=== PATIENT | male | born 1955 | race Caucasian/White ===

== ENCOUNTER 2017-10-29 17:44 | Inpatient (IN) | payer OTHER ==
[~2017-10-29] VITALS: Ht 170.2 cm; Wt 79.4 kg
[2017-10-29] MEDS ORDERED: LEVETIRACETAM INJ 1,000 MG in D5W 5% 100 ML IV ONE (19:15)
[2017-10-29 19:22] LABS: Basophils # (auto) 0 uL; Basophils % (auto) 0.3 % (0.0-2.0); Eosinophils # (auto) 0.1 uL; Eosinophils % (auto) 0.7 % (0.0-7.0); Hematocrit 40.9 % (41.0-53.0); Hemoglobin 13.5 g/dL (13.5-17.5); Lymphocytes # (auto) 1.3 uL; Lymphocytes % (auto) 9.4 % (10.0-50.0); Mean Corpuscular Volume 90.9 fL (80.0-100.0); Monocytes # (auto) 0.8 uL; Neutrophils # (auto) 11.7 uL; Neutrophils % (auto) 83.6 % (37.0-80.0); Platelet Count (auto) 248 10^3/uL (140-450); Red Cell Distribution Width 13.1 % (11.8-14.3)
[2017-10-29 20:01] LABS: Anion Gap 9 (5-15); Carbon Dioxide 25 mmol/L (21-32); Chloride 107 mmol/L (98-107); Potassium 3.5 mmol/L (3.5-5.1); Sodium 141 mmol/L (136-145)
[2017-10-29 20:02] LABS: Alanine Aminotransferase 21 U/L (16-61); Albumin 3.6 g/dL (3.4-5.0); Alkaline Phosphatase 82 U/L (45-117); Aspartate Aminotransferase 14 U/L (15-37); BUN/Creatinine Ratio 15.5; Bilirubin, Total 0.6 mg/dL (0.2-1.0); Blood Urea Nitrogen 16 mg/dL (7-18); Calcium 8.7 mg/dL (8.5-10.1); GFR African American 94 mL/min; GFR Non-African American 78 mL/min; Glucose 77 mg/dL (74-106)
[2017-10-29] MEDS ORDERED: LORazepam 2MG/ML-1ML VIAL IV PRN (20:45)
[2017-10-29] MEDS ORDERED: ACETAMINOPHEN 500 MG TAB PO PRN (20:45)
[2017-10-29] MEDS ORDERED: HYDROcodone-ACET 5/325MG TAB PO PRN (20:45)
[2017-10-29] MEDS ORDERED: ONDANSETRON HCL 4 MG/2 ML VIAL IV PRN (20:45)
[2017-10-29] MEDS ORDERED: SODIUM CHLORIDE 0.9% 500 ML IV ONE (21:15)
[2017-10-29] MEDS: traZODone HCL 50 MG TAB PO SCH (22:04)
[2017-10-29] MEDS: ATORVASTATIN 20 MG TAB PO SCH (22:04)
[2017-10-29 22:15] VITALS: BP 136/70
[2017-10-30 05:16] VITALS: BP 104/65
[2017-10-30 05:49] LABS: Basophils # (auto) 0 uL; Basophils % (auto) 0.3 % (0.0-2.0); Eosinophils # (auto) 0.1 uL; Eosinophils % (auto) 1.1 % (0.0-7.0); Hematocrit 36.8 % (41.0-53.0); Hemoglobin 12.1 g/dL (13.5-17.5); Lymphocytes # (auto) 2.3 uL; Lymphocytes % (auto) 25.3 % (10.0-50.0); Mean Corpuscular Hemoglobin 29.7 pg (28.0-32.0); Mean Corpuscular Hgb Conc. 32.9 g/dL (32.0-36.0); Mean Corpuscular Volume 90.4 fL (80.0-100.0); Monocytes # (auto) 0.7 uL; Monocytes % (auto) 7.9 % (0.0-12.0); Neutrophils # (auto) 6.1 uL; Neutrophils % (auto) 65.4 % (37.0-80.0); Platelet Count (auto) 227 10^3/uL (140-450); Red Blood Cells 4.08 10^6/uL (4.5-5.90); Red Cell Distribution Width 13.2 % (11.8-14.3); White Blood Cell 9.3 10^3/uL (4.4-10.8)
[2017-10-30 09:00] VITALS: BP 141/80
[2017-10-30] MEDS ORDERED: amLODIPine BESYLATE 5 MG TAB PO SCH (10:00)
[2017-10-30] MEDS: cefTRIAXone 1GM/10ml IVPUSH 10 ML IV SCH (10:26)
[2017-10-30] MEDS: APIXABAN 5 MG TAB PO SCH ×2 (10:26→21:48)
[2017-10-30] MEDS: LOSARTAN POTASSIUM 50 MG TAB PO SCH (10:27)
[2017-10-30] MEDS ORDERED: SOD CHL 0.45% 1,000 ML IV ONE (10:45)
[2017-10-30] MEDS: ASPirin-EC 81 mg tab PO SCH (12:08)
[2017-10-30] MEDS: CLOPIDOGREL BISULFATE 75 MG TAB PO SCH (12:08)
[2017-10-30] MEDS: amLODIPine BESYLATE 5 MG TAB PO SCH (12:08)
[2017-10-30 13:00] VITALS: BP_SYST 124; BP_SYST 159; BP_DIAS 41; BP_DIAS 75
[2017-10-30 15:00] VITALS: BP 138/73
[2017-10-30] MEDS ORDERED: CHOL50007 PO (16:36)
[2017-10-30] MEDS ORDERED: ATOR20TA50 PO (16:36)
[2017-10-30] MEDS ORDERED: SENN-58 PO (16:36)
[2017-10-30] MEDS ORDERED: SENN1TAB14 PO (16:36)
[2017-10-30] MEDS ORDERED: LIDO2SOL18 MT (16:36)
[2017-10-30] MEDS ORDERED: CAR125T OR (16:36)
[2017-10-30] MEDS ORDERED: SIME1CHW14 PO (16:36)
[2017-10-30] MEDS ORDERED: CLOP75TA41 PO (16:36)
[2017-10-30] MEDS ORDERED: HYDR50TA15 PO (16:36)
[2017-10-30] MEDS ORDERED: TEMA30CA PO (16:36)
[2017-10-30] MEDS ORDERED: LOSA50TA6 PO (16:36)
[2017-10-30] MEDS ORDERED: APIX5TAB OR (16:36)
[2017-10-30] MEDS ORDERED: DOCU-94 PO ×2 (16:36)
[2017-10-30] MEDS ORDERED: MAGN400S25 PO (16:36)
[2017-10-30] MEDS ORDERED: ONDA4TAB5 PO (16:36)
[2017-10-30] MEDS ORDERED: LOPE2CAP14 PO (16:36)
[2017-10-30] MEDS ORDERED: B COCAP3 OR (16:36)
[2017-10-30] MEDS ORDERED: ACET-1156 PO (16:36)
[2017-10-30] MEDS ORDERED: GUAI-16 PO (16:36)
[2017-10-30] MEDS ORDERED: AMLO5TAB2 PO (16:36)
[2017-10-30] MEDS ORDERED: TRAZ50TA2 PO (16:36)
[2017-10-30 17:00] VITALS: BP 148/76
[2017-10-30] MEDS: ATORVASTATIN 20 MG TAB PO SCH (21:48)
[2017-10-30] MEDS: traZODone HCL 50 MG TAB PO SCH (21:48)
[2017-10-30 22:00] VITALS: BP 107/53
[2017-10-31 01:47] LABS: Urine Bacteria FEW /hpf (None Seen); Urine Blood Negative /uL (Negative); Urine Mucus FEW (None Seen); Urine Specific Gravity 1.004 (1.001-1.035); Urine WBC 1 /hpf (0 - 3)
[2017-10-31 02:06] LABS: Alcohol, Urine < 3.0 mg/dL (0-5); Amphetamine Screen, Urine NEGATIVE (NEGATIVE); Barbiturate Scree,Urine NEGATIVE (NEGATIVE); Benzodiazephine Screen, Urine NEGATIVE (NEGATIVE); Cannabinoid Screen, Urine NEGATIVE (NEGATIVE); Cocaine Screen, Urine NEGATIVE (NEGATIVE); Opiate Scree,Urine NEGATIVE (NEGATIVE); Phencyclidine Screen, Urine NEGATIVE (NEGATIVE)
[2017-10-31 05:00] VITALS: BP 116/66
[2017-10-31 08:34] LABS: Basophils # (auto) 0 uL; Basophils % (auto) 0.4 % (0.0-2.0); Eosinophils # (auto) 0.1 uL; Eosinophils % (auto) 1.5 % (0.0-7.0); Hematocrit 40.2 % (41.0-53.0); Hemoglobin 13.2 g/dL (13.5-17.5); Lymphocytes # (auto) 1.7 uL; Lymphocytes % (auto) 24.6 % (10.0-50.0); Mean Corpuscular Hemoglobin 29.5 pg (28.0-32.0); Mean Corpuscular Hgb Conc. 32.9 g/dL (32.0-36.0); Mean Corpuscular Volume 89.9 fL (80.0-100.0); Monocytes # (auto) 0.6 uL; Monocytes % (auto) 8.7 % (0.0-12.0); Neutrophils # (auto) 4.5 uL; Neutrophils % (auto) 64.8 % (37.0-80.0); Nucleated Red Blood Cells % 0.1 %; Platelet Count (auto) 227 10^3/uL (140-450); Red Blood Cells 4.48 10^6/uL (4.5-5.90); Red Cell Distribution Width 12.9 % (11.8-14.3); White Blood Cell 6.9 10^3/uL (4.4-10.8)
[2017-10-31 08:44] LABS: BUN/Creatinine Ratio 18.5; Potassium 3.7 mmol/L (3.5-5.1)
[2017-10-31 09:00] VITALS: BP 152/83
[2017-10-31] MEDS: cefTRIAXone 1GM/10ml IVPUSH 10 ML IV SCH (09:47)
[2017-10-31] MEDS: LOSARTAN POTASSIUM 50 MG TAB PO SCH (09:47)
[2017-10-31] MEDS: APIXABAN 5 MG TAB PO SCH ×2 (09:48→21:18)
[2017-10-31] MEDS: ASPirin-EC 81 mg tab PO SCH (09:48)
[2017-10-31] MEDS: CLOPIDOGREL BISULFATE 75 MG TAB PO SCH (09:48)
[2017-10-31] MEDS: amLODIPine BESYLATE 5 MG TAB PO SCH (09:49)
[2017-10-31 13:15] VITALS: BP 145/75
[2017-10-31 17:00] VITALS: BP 146/85
[2017-10-31] MEDS: traZODone HCL 50 MG TAB PO SCH (21:19)
[2017-10-31] MEDS: ATORVASTATIN 20 MG TAB PO SCH (21:19)
[2017-10-31 22:00] VITALS: BP 101/48
[2017-11-01] VITALS (7 sets, daily range): BP systolic 145–160; BP diastolic 73–84
[2017-11-01 07:25] LABS: Basophils # (auto) 0 uL; Basophils % (auto) 0.5 % (0.0-2.0); Eosinophils # (auto) 0.1 uL; Eosinophils % (auto) 1.7 % (0.0-7.0); Hematocrit 40.4 % (41.0-53.0); Hemoglobin 13.4 g/dL (13.5-17.5); Lymphocytes # (auto) 1.6 uL; Lymphocytes % (auto) 22.8 % (10.0-50.0); Mean Corpuscular Hemoglobin 30.2 pg (28.0-32.0); Mean Corpuscular Hgb Conc. 33.3 g/dL (32.0-36.0); Mean Corpuscular Volume 90.8 fL (80.0-100.0); Monocytes # (auto) 0.6 uL; Neutrophils # (auto) 4.8 uL; Platelet Count (auto) 227 10^3/uL (140-450); Red Blood Cells 4.45 10^6/uL (4.5-5.90); Red Cell Distribution Width 13.2 % (11.8-14.3); White Blood Cell 7.2 10^3/uL (4.4-10.8)
[2017-11-01 07:45] LABS: BUN/Creatinine Ratio 17.7; Calcium 8.9 mg/dL (8.5-10.1); Potassium 3.8 mmol/L (3.5-5.1)
[2017-11-01] MEDS ORDERED: DOCUSATE SOD 100 MG CAP PO PRN (07:45)
[2017-11-01] MEDS: cefTRIAXone 1GM/10ml IVPUSH 10 ML IV SCH (09:18)
[2017-11-01] MEDS: ASPirin-EC 81 mg tab PO SCH (09:19)
[2017-11-01] MEDS: amLODIPine BESYLATE 5 MG TAB PO SCH (09:19)
[2017-11-01] MEDS: CLOPIDOGREL BISULFATE 75 MG TAB PO SCH (09:19)
[2017-11-01] MEDS: APIXABAN 5 MG TAB PO SCH (09:20)
[2017-11-01] MEDS: LOSARTAN POTASSIUM 50 MG TAB PO SCH (09:20)
[2017-11-01 11:57] LABS: BUN/Creatinine Ratio 15.4; Calcium 8.5 mg/dL (8.5-10.1); Potassium 3.6 mmol/L (3.5-5.1)
== END 2017-11-01 15:15 | disposition home or self-care (01) | DRG 641 ==
LOC: ER 17:49 → TELE 17:50 → TELE-EAST 22:33
PROVIDERS: ADMIT Nurse Practitioner Family; ATTEND Internal Medicine
DX: E86.0 Dehydration (principal); R65.10 Systemic inflammatory response syndrome (SIRS) of non-infectious origin without acute organ dysfunction; I69.351 Hemiplegia and hemiparesis following cerebral infarction affecting right dominant side; I69.354 Hemiplegia and hemiparesis following cerebral infarction affecting left non-dominant side; E78.5 Hyperlipidemia, unspecified; I10 Essential (primary) hypertension; R56.9 Unspecified convulsions; Z87.891 Personal history of nicotine dependence
CPT/HCPCS: 36415; 70450; 71045; 80048; 80053; 80307; 81001; 83880; 84484; 85025; 87086; 93005; 93306; 96361; 96365; 96375; 99291; J0696; J7060